=== PATIENT | female | born 2000 | race Hispanic/Latino ===

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

== ENCOUNTER 2020-05-05 19:36 | Emergency (ER) | payer OTHER, MEDICAID ==
[2020-05-05 20:04] LABS: Bacteria/HPF 4+ HPF (None Seen); Bilirubin Negative (Negative); Blood, Urine Trace (Negative); Clarity Turbid (Clear); Glucose, Urine (Dipstick) Normal (Negative); Ketone, Urine Greater than 150 mg/dL (Negative); Leukocyte 25 Leu/uL (Negative); Mucous/LPF 1+ LPF (<2+); Nitrite Negative (Negative); Protein, Urine (Dipstick) 100 mg/dL (Neg-Trace); Renal Epithelial 0-3 HPF (None Seen); Specific Gravity, Urine 1.035 (1.002-1.036); Urobilinogen Normal mg/dL (Less than 2)
[2020-05-05 20:16] LABS: #Basophils 0.1 thou/uL (0.0-0.2); #Lymphocytes 1.4 thou/uL (1.20-3.40); #Monocytes 0.5 thou/uL (0.11-0.59); #Neutrophils 14.8 thou/uL (1.40-6.50); %Basophils 0.4 % (0.0-1.0); %Eosinophils 0.2 % (0.0-10.0); %Lymphocytes 8.2 % (28.0-48.0); %Monocytes 3.1 % (0.0-4.0); %Neutrophils 88.1 % (31.0-61.0); Hemoglobin 14.3 g/dL (12.0-16.0); Mean Corpuscular HGB CONC 34.8 g/dL (32.0-36.0); Mean Corpuscular Hemoglobin 29.4 pg (25.0-35.0); Mean Corpuscular Volume 84.5 fL (78.0-98.0); Mean Platelet Volume 6.9 fL (7.4-10.4); Platelet Count 425 thou/uL (130-400); RBC Distribution Width 11.8 % (11.5-14.5); Red Blood Cell (RBC) Count 4.85 mill/uL (4.00-5.20); White Blood Cell (WBC) Count 16.8 thou/uL (4.8-10.8)
[2020-05-05 20:42] LABS: ALT (SGPT) 21 U/L (8-55); AST (SGOT) 22 U/L (5-34); Albumin 5.2 g/dL (3.5-5.0); Alkaline Phosphatase 117 U/L (40-100); Anion Gap 19 mmol/L (10-20); BUN (Urea Nitrogen) 10 mg/dL (7.0-18.7); Bilirubin, Total 1.1 mg/dL (0.2-1.2); Calc. Creatinine Clearance 0 mL/min (70-130); Calcium 10.1 mg/dL (7.8-10.44); Carbon Dioxide 18 mmol/L (22-29); Chloride 103 mmol/L (98-107); Globulin 3.4 g/dL (2.4-3.5); Glucose 115 mg/dL (70-105); Potassium 3.2 mmol/L (3.5-5.1); Protein, Total 8.6 g/dL (6.0-8.3); Sodium 137 mmol/L (136-145)
[2020-05-05] MEDS ORDERED: Ondansetron PF 4 MG/2 ML Vial ONE (20:42)
[2020-05-05 20:56] LABS: Pregnancy Test - Urine (BHCG) POSITIVE (Negative); Pregu Control Background? CLEAR/WHITE (CLR/WHITE); Pregu Control Bar Appear? YES (CONTROL BAR); Specific Gravity 1.035 (1.002-1.036)
[2020-05-05] MEDS ORDERED: Metoclopramide HCl 10 MG/2 ML VIAL ONE (22:32)
[2020-05-05] MEDS ORDERED: diphenhydrAMINE 50 MG/ML VIAL ONE (22:32)
[2020-05-05] MEDS ORDERED: Potassium Chloride 20 MEQ TAB ONE ×2 (22:38→23:23)
== END 2020-05-05 23:55 | disposition short-term general hospital (02) ==
LOC: ERS 19:36
DX: O21.1 Hyperemesis gravidarum with metabolic disturbance (principal); Z3A.01 Less than 8 weeks gestation of pregnancy
CPT/HCPCS: 36415; 76856; 80053; 81003; 81015; 81025; 84702; 85025; 94760; 96365; 96375; J1200; J2405; J2765

== ENCOUNTER 2020-07-05 08:46 | Emergency (ER) | payer OTHER ==
[2020-07-05] MEDS ORDERED: Ondansetron ODT 4 MG TAB ONE (09:00)
[2020-07-05] MEDS ORDERED: Ondansetron PF 4 MG/2 ML Vial ONE (09:50)
[2020-07-05 10:07] LABS: Bacteria/HPF 2+ HPF (None Seen); Bilirubin Negative (Negative); Blood, Urine Trace (Negative); Glucose, Urine (Dipstick) Normal (Negative); Ketone, Urine Greater than 150 mg/dL (Negative); Leukocyte Negative Leu/uL (Negative); Nitrite Negative (Negative); Protein, Urine (Dipstick) 70 mg/dL (Neg-Trace); Specific Gravity, Urine 1.034 (1.002-1.036); Urobilinogen Normal mg/dL (Less than 2)
[2020-07-05 10:08] LABS: #Lymphocytes 0.7 thou/uL (1.20-3.40); #Monocytes 0.4 thou/uL (0.11-0.59); #Neutrophils 12.6 thou/uL (1.40-6.50); %Basophils 0.3 % (0.0-1.0); %Eosinophils 0.2 % (0.0-10.0); %Lymphocytes 4.8 % (28.0-48.0); %Monocytes 3.1 % (0.0-4.0); %Neutrophils 91.7 % (31.0-61.0); Hemoglobin 13.2 g/dL (12.0-16.0); Mean Corpuscular HGB CONC 34.5 g/dL (32.0-36.0); Mean Corpuscular Hemoglobin 29.7 pg (25.0-35.0); Mean Platelet Volume 7.2 fL (7.4-10.4); Platelet Count 374 thou/uL (130-400); Red Blood Cell (RBC) Count 4.44 mill/uL (4.00-5.20); White Blood Cell (WBC) Count 13.7 thou/uL (4.8-10.8)
[2020-07-05 10:09] LABS: Clarity Cloudy (Clear)
[2020-07-05 10:32] LABS: ALT (SGPT) 18 U/L (8-55); AST (SGOT) 18 U/L (5-34); Albumin 4.6 g/dL (3.5-5.0); Alkaline Phosphatase 109 U/L (40-100); Anion Gap 20 mmol/L (10-20); BUN (Urea Nitrogen) 7 mg/dL (7.0-18.7); Bilirubin, Total 0.6 mg/dL (0.2-1.2); Calc. Creatinine Clearance 0 mL/min (70-130); Calcium 10.1 mg/dL (7.8-10.44); Carbon Dioxide 15 mmol/L (22-29); Chloride 105 mmol/L (98-107); Globulin 3.2 g/dL (2.4-3.5); Glucose 121 mg/dL (70-105); Potassium 3.1 mmol/L (3.5-5.1); Protein, Total 7.8 g/dL (6.0-8.3); Sodium 137 mmol/L (136-145)
[2020-07-05] MEDS ORDERED: Metoclopramide HCl 10 MG/2 ML VIAL ONE (10:45)
[2020-07-05] MEDS ORDERED: Potassium Chloride 20 MEQ TAB ONE (11:28)
[2020-07-05] MEDS ORDERED: Potassium Bicarbonate/Cit Ac 20 MEQ TAB PO SCH (11:45)
== END 2020-07-05 12:24 | disposition home or self-care (01) ==
LOC: ERS 08:46
DX: O21.0 Mild hyperemesis gravidarum (principal); Z3A.13 13 weeks gestation of pregnancy
CPT/HCPCS: 36415; 80053; 81003; 81015; 84702; 85025; 96374; 96375; J2405; J2765; Q0162

== ENCOUNTER 2021-02-09 09:41 | Emergency (ER) | payer OTHER ==
[2021-02-09 11:16] LABS: SARS-CoV-2 NAA Rapid Test DETECTED (NotDetected)
== END 2021-02-09 11:50 | disposition home or self-care (01) ==
LOC: ERS 09:41
DX: U07.1 COVID-19 (principal)
CPT/HCPCS: 0240U; 99284

== ENCOUNTER 2023-08-14 13:57 | Outpatient (CLI) | payer BC, OTHER | END 2023-08-14 13:58 | disposition home or self-care (01) | LOC: BICULT 13:57 | PROVIDERS: ATTEND Family Medicine | DX: N63.23 Unspecified lump in the left breast, lower outer quadrant (principal); N60.02 Solitary cyst of left breast ==